=== PATIENT | female | born 1990 | race Caucasian/White ===

== ENCOUNTER 2021-09-15 21:33 | Emergency (ER) | payer SELFPAY ==
[~2021-09-15] VITALS: Ht 162.6 cm; Wt 71.0 kg
[2021-09-15] MEDS ORDERED: SODIUM CHLORIDE 0.9% 1,000 ML IV ONE (22:15)
[2021-09-15] MEDS ORDERED: LORAZEPAM 2MG/ML CPJ IV ONE ×2 (22:15→23:30)
[2021-09-16 01:46] VITALS: BP 104/69
[2021-09-16] MEDS ORDERED: NALO4SPR BOTHNSTRLS (03:06)
== END 2021-09-16 03:21 | disposition home or self-care (01) ==
LOC: ER 21:33
DX: F12.180 Cannabis abuse with cannabis-induced anxiety disorder (principal)
CPT/HCPCS: 96374; 99283; J2060; J7030